=== PATIENT | male | born 1990 | race Caucasian/White ===

== ENCOUNTER 2016-08-27 21:21 | Emergency (ER) | payer OTHER ==
[2016-08-27] MEDS ORDERED: FLUORESCEIN OPHTH 1 MG STRIP As Ordered ONE (23:15)
[2016-08-27] MEDS ORDERED: TETRACAINE 0.5% OPHTH SOLN 2 ML As Ordered ONE (23:15)
[2016-08-27] MEDS ORDERED: IRRIGATION OPHTH SOLN (EYE WASH) 120ML As Ordered ONE (23:15)
[2016-08-27] MEDS ORDERED: OFLOXACIN 0.3 % (OCUFLOX) OPTH SOL 5ML OU ONE (23:45)
[2016-08-28] MEDS ORDERED: IBUPROFEN 800 MG TAB As Ordered ONE (00:11)
--- NOTE | 2016-08-28 00:19 | EDDOCDS ---
Physician Documentation [facility] Name: Trent Krueger Age: 26 yrs Sex: Male : 1990 Arrival Date: 08/27/2016 Time: 21:21 Bed I1 Private MD: Disposition: 08/27/16 23:40 Discharged to Home/Self Care. Impression: Injury of conjunctiva and corneal abrasion without foreign body, right eye. - Condition is Stable. - Discharge Instructions: Corneal Abrasion. - Prescriptions for ofloxacin 0.3 % Ophthalmic drops - instill 1 drop by OPHTHALMIC route 4 times per day for 7 days right; 1 bottle. - Medication Reconciliation, Local Pharmacy Hours form. - Follow up: Brian Patten; When: Call to arrange an appointment; Reason: Recheck today's complaints. Follow up: JOVI Pérez; When: As needed; Reason: Continuance of care. Follow up: Emergency Department; When: As needed; Reason: Worsening of conditions. - Problem is new. - Symptoms have improved. Historical: - Allergies: no known allergies; - Home Meds: 1. none - PMHx: none; - PSHx: left arm surgery; Lasik Surgery; - Social history: Smoking status: Patient states was never smoker of tobacco. No barriers to communication noted. - Family history: Not pertinent. - : The pt / caregiver states he / she is not on anticoagulants. Home medication list is obtained from the patient. - Exposure Risk Screening:: None identified. Vital Signs: 08/27 21:23 BP 153 / 101; Pulse 66; Resp 18; Temp 97.8(O); Pulse Ox 98% on R/A; Weight 97.52 kg / kb5 214.99 lbs (R); Height 5 ft. 11 in. (180.34 cm); Pain 7/10; 08/28 00:15 BP 148 / 92; Pulse 54; Resp 16; Temp 98.5; Pulse Ox 100% ; Pain 7/10; [facility] 08/27 21:23 Body Mass Index 29.99 (97.52 kg, 180.34 cm) kb5 Visual Acuity: 08/27 22:57 Left Eye Visual acuity 20/20, Pupil size 3 mm, ; Right Eye Visual acuity 20/25, Pupil cz size 3 mm, ; Both Eyes Visual acuity 20/20; Without Lenses; MDM: 23:22 Tetracaine (PF) Drops 0.5 % 2 drps Ophthalmic once ordered. ar2 23:22 Fluorescein Strip 1 strips Ophthalmic once ordered. ar2 23:22 Misc. Nursing Order ordered. ar2 23:39 Ofloxacin Drops 0.3 % 1 drps Ophthalmic once ordered. ar2 23:49 Financial registration complete. hs2 08/28 00:10 Ibuprofen 800 mg PO once ordered. ar2 Administered Medications: 08/27 23:23 Drug: Tetracaine (PF) 2 drps [tetracaine HCl (PF) 0.5 % eye drops (2 drps)] {Note: ld5 given to provider.} Route: Ophthalmic; Site: right eye; 23:23 Drug: Fluorescein 1 strips [fluorescein 1 mg eye strips (1 strips)] {Note: given to ld5 provider.} Route: Ophthalmic; Site: right eye; 08/28 00:14 Drug: Ofloxacin Drops 0.3 % 1 drps Route: Ophthalmic; Site: right eye; [facility] 00:14 Drug: Ibuprofen 800 mg Route: PO; [facility] 00:17 Follow up: Response: Pt left department before re-evaluation is appropriate [facility] Signatures: Barber Gamboa PA-C PA-C ar2 Inna Lowry RN RN [facility] Ary Cedillo, Brandon [facility] hs2 Audra Barry RN ld5 MTDD
--- NOTE | 2016-08-28 00:19 | EDDOCDS ---
Nurse's Notes [facility] Name: Trent Krueger Age: 26 yrs Sex: Male : 1990 Arrival Date: 08/27/2016 Time: 21:21 Bed I10 / 23 Private MD: Diagnosis: Injury of conjunctiva and corneal abrasion without foreign body, right eye Presentation: 08/27 21:37 Presenting complaint: Patient states: I got a piece of wood in my eye when cutting a [facility] board between four and five, tried eye drops and flushing in sink and shower. Mechanism of Injury: Penetrating trauma. The patient denies any loss of vision. Adult Sepsis Screening: The patient does not have new or worsening altered mentation. Patient's respiratory rate is less than 22. Systolic blood pressure is greater than 100. Patient has a qSOFA score of 0- Negative Sepsis Screen. Suicide/Homicide risk assessment- the patient denies having any suicidal and/or homicidal ideations and does not present with any other emotional, behavioral or mental health complaints. Status: The patient is an active duty clinical services professional. Transition of care: patient was not received from another setting of care. 21:37 Acuity: GAURAV Level 4 [facility] 21:37 Method Of Arrival: Walkin/Carried/Asstd [facility] Triage Assessment: 21:39 General: Appears in no apparent distress, uncomfortable, Behavior is cooperative. Pain: [facility] Location: right eye Pain currently is 7 out of 10 on a pain scale. HIV screening NA for this visit Offered previously. EENT: Reports pain in right eye. Respiratory: Airway is patent Respiratory effort is even, unlabored, Respiratory pattern is regular, symmetrical. Derm: Skin is pink, warm & dry. Historical: - Allergies: no known allergies; - Home Meds: 1. none - PMHx: none; - PSHx: left arm surgery; Lasik Surgery; - Social history: Smoking status: Patient states was never smoker of tobacco. No barriers to communication noted. - Family history: Not pertinent. - : The pt / caregiver states he / she is not on anticoagulants. Home medication list is obtained from the patient. - Exposure Risk Screening:: None identified. Screenin/07 00:15 Screening information is obtained from the patient. Fall risk: No risks identified. [facility] Assistance ADL's: requires no assistance with activities of daily living. Abuse/DV Screen: The patient / caregiver reports he/she is: not in a situation that causes fear, pain or injury. Nutritional screening: No deficits noted. Advance Directives: There is no active DNR order. home support is adequate. Assessment: 00:15 General: Appears in no apparent distress, comfortable, Behavior is appropriate for age, [facility] cooperative. Pain: Location: right eye. Respiratory: Airway is patent Respiratory effort is even, unlabored, Respiratory pattern is regular, symmetrical. Derm: Skin is pink, warm & dry. Vital Signs: 08/27 21:23 BP 153 / 101; Pulse 66; Resp 18; Temp 97.8(O); Pulse Ox 98% on R/A; Weight 97.52 kg kb5 (R); Height 5 ft. 11 in. (180.34 cm); Pain 7/10; 08/28 00:15 BP 148 / 92; Pulse 54; Resp 16; Temp 98.5; Pulse Ox 100% ; Pain 7/10; [facility] 08/27 21:23 Body Mass Index 29.99 (97.52 kg, 180.34 cm) kb Visual Acuity: 08/27 22:57 Left Eye Visual acuity 20/20, Pupil size 3 mm, ; Right Eye Visual acuity 20/25, Pupil cz size 3 mm, ; Both Eyes Visual acuity 20/20; Without Lenses; ED Course: 21:23 Patient visited by Adalid Pyle PCA. kb5 21:23 Patient moved to Waiting kb5 21:25 Patient visited by Adalid Pyle PCA. kb5 21:[address] [facility] 21:44 Patient moved to Pre RCE cz 22:51 Patient moved to Triage 1 jb5 22:51 Patient moved to Pre RCE jb5 22:53 Patient visited by Paulette Sharma PCA. jb5 22:53 Patient moved to Triage 1 jb5 22:53 Patient moved to I10 23 jb5 23:10 Barber Gamboa PA-C is [facility]. ar2 23:10 Christian Jeffery DO is Attending Physician. ar2 23:10 Patient visited by Barber Gamboa PA-C. ar2 23:23 Patient visited by Melisa Scott LPN. cp1 23:39 Brian Patten is Referral Physician. ar2 23:39 JOVI Pérez is Referral Physician. ar2 08/28 00:15 The patient / caregiver is instructed regarding the plan of care and ED course. [facility] 00:15 No IV's were initiated during this patient's visit. No procedures done that require [facility] assistance. Administered Medications: 08/27 23:23 Drug: Tetracaine (PF) 2 drps [tetracaine HCl (PF) 0.5 % eye drops (2 drps)] {Note: ld5 given to provider.} Route: Ophthalmic; Site: right eye; 23:23 Drug: Fluorescein 1 strips [fluorescein 1 mg eye strips (1 strips)] {Note: given to ld5 provider.} Route: Ophthalmic; Site: right eye; 08/28 00:14 Drug: Ofloxacin Drops 0.3 % 1 drps Route: Ophthalmic; Site: right eye; [facility] 00:14 Drug: Ibuprofen 800 mg Route: PO; [facility] 00:17 Follow up: Response: Pt left department before re-evaluation is appropriate [facility] Order Results: There are currently no results for this order. Outcome: 08/27 23:40 Discharge ordered by Provider. ar2 08/28 00:15 Discharge Assessment: Patient awake, alert and oriented x 3. No cognitive and/or [facility] functional deficits noted. Patient verbalized understanding of disposition instructions. patient administered narcotics - no. The following High Risk Discharge criteria are identified: None. Discharged to home ambulatory, with family. Condition: good Condition: stable Condition: improved. Discharge instructions given to patient, Instructed on discharge instructions, follow up and referral plans. medication usage, Demonstrated understanding of instructions, medications, Pt was receptive of discharge instructions/ teaching. Prescriptions given X 1. No special radiology studies were completed. Property :Personal belongings accompany Pt. 00:18 [address] the ED[address] [facility] Signatures: Stuart Rivera, RN RN Paulette Crum, SCUBA DIVE TRAINING INSTRUCTOR SCUBA DIVE TRAINING INSTRUCTOR jb5 Adalid Pyle, SCUBA DIVE TRAINING INSTRUCTOR SCUBA DIVE TRAINING INSTRUCTOR kb5 Barber Gamboa PA-C PA-C ar2 Melisa Scott LPN MANAGER RECRUITING cp1 Audra Barry RN RN ld5 Inna Lowry RN RN [facility] MTDD
--- NOTE | 2016-08-31 10:15 | EDDOCDS ---
Nurse's Notes [facility] Name: Trent Krueger Age: 26 yrs Sex: Male : 1990 Arrival Date: 08/27/2016 Time: 21:21 Bed I10 / 23 Private MD: Diagnosis: Injury of conjunctiva and corneal abrasion without foreign body, right eye Presentation: 08/27 21:37 Presenting complaint: Patient states: I got a piece of wood in my eye when cutting a [facility] board between four and five, tried eye drops and flushing in sink and shower. Mechanism of Injury: Penetrating trauma. The patient denies any loss of vision. Adult Sepsis Screening: The patient does not have new or worsening altered mentation. Patient's respiratory rate is less than 22. Systolic blood pressure is greater than 100. Patient has a qSOFA score of 0- Negative Sepsis Screen. Suicide/Homicide risk assessment- the patient denies having any suicidal and/or homicidal ideations and does not present with any other emotional, behavioral or mental health complaints. Status: The patient is an active duty cargo services coordinator. Transition of care: patient was not received from another setting of care. 21:37 Acuity: GAURAV Level 4 [facility] 21:37 Method Of Arrival: Walkin/Carried/Asstd [facility] Triage Assessment: 21:39 General: Appears in no apparent distress, uncomfortable, Behavior is cooperative. Pain: [facility] Location: right eye Pain currently is 7 out of 10 on a pain scale. HIV screening NA for this visit Offered previously. EENT: Reports pain in right eye. Respiratory: Airway is patent Respiratory effort is even, unlabored, Respiratory pattern is regular, symmetrical. Derm: Skin is pink, warm & dry. Historical: - Allergies: no known allergies; - Home Meds: 1. none - PMHx: none; - PSHx: left arm surgery; Lasik Surgery; - Social history: Smoking status: Patient states was never smoker of tobacco. No barriers to communication noted. - Family history: Not pertinent. - : The pt / caregiver states he / she is not on anticoagulants. Home medication list is obtained from the patient. - Exposure Risk Screening:: None identified. Screenin/07 00:15 Screening information is obtained from the patient. Fall risk: No risks identified. [facility] Assistance ADL's: requires no assistance with activities of daily living. Abuse/DV Screen: The patient / caregiver reports he/she is: not in a situation that causes fear, pain or injury. Nutritional screening: No deficits noted. Advance Directives: There is no active DNR order. home support is adequate. Assessment: 00:15 General: Appears in no apparent distress, comfortable, Behavior is appropriate for age, [facility] cooperative. Pain: Location: right eye. Respiratory: Airway is patent Respiratory effort is even, unlabored, Respiratory pattern is regular, symmetrical. Derm: Skin is pink, warm & dry. Vital Signs: 08/27 21:23 BP 153 / 101; Pulse 66; Resp 18; Temp 97.8(O); Pulse Ox 98% on R/A; Weight 97.52 kg kb5 (R); Height 5 ft. 11 in. (180.34 cm); Pain 7/10; 08/28 00:15 BP 148 / 92; Pulse 54; Resp 16; Temp 98.5; Pulse Ox 100% ; Pain 7/10; [facility] 08/27 21:23 Body Mass Index 29.99 (97.52 kg, 180.34 cm) kb Visual Acuity: 08/27 22:57 Left Eye Visual acuity 20/20, Pupil size 3 mm, ; Right Eye Visual acuity 20/25, Pupil cz size 3 mm, ; Both Eyes Visual acuity 20/20; Without Lenses; ED Course: 21:23 Patient visited by Adalid Pyle PCA. kb5 21:23 Patient moved to Waiting kb5 21:25 Patient visited by Adalid Pyle PCA. kb5 21:38 Triage Initiated [facility] 21:44 Patient moved to Pre RCE cz 22:51 Patient moved to Triage 1 jb5 22:51 Patient moved to Pre RCE jb5 22:53 Patient visited by Paulette Sharma PCA. jb5 22:53 Patient moved to Triage 1 jb5 22:53 Patient moved to I10 23 jb5 23:10 Barber Gamboa PA-C [facility] ar2 23:10 Christian Jeffery DO is Attending Physician. ar2 23:10 Patient visited by Barber Gamboa PA-C. ar2 23:23 Patient visited by Melisa Scott LPN. cp1 23:39 Brian Patten is Referral Physician. ar2 23:39 JOVI Pérez is Referral Physician. ar2 08/28 00:15 The patient / caregiver is instructed regarding the plan of care and ED course. [facility] 00:15 No IV's were initiated during this patient's visit. No procedures done that require [facility] assistance. 00:47 Patient name changed from Trent\S\\S\Evans\S\ to Trent\S\Art\S\Evans. EDMS 00:49 [facility] [place] [place] Payment Agreement was scanned into [employer] and attached to record. hs2 08:12 T-Sheet-- Draft Copy was scanned into [employer] and attached to record. se 18:56 [facility] [place] [place] Payment Agreement was scanned into [employer] and attached to record. [email or web address] Administered Medications: 08/27 23:23 Drug: Tetracaine (PF) 2 drps [tetracaine HCl (PF) 0.5 % eye drops (2 drps)] {Note: ld5 given to provider.} Route: Ophthalmic; Site: right eye; 23:23 Drug: Fluorescein 1 strips [fluorescein 1 mg eye strips (1 strips)] {Note: given to ld5 provider.} Route: Ophthalmic; Site: right eye; 08/28 00:14 Drug: Ofloxacin Drops 0.3 % 1 drps Route: Ophthalmic; Site: right eye; [facility] 00:14 Drug: Ibuprofen 800 mg Route: PO; [facility] 00:17 Follow up: Response: Pt left department before re-evaluation is appropriate [facility] Order Results: There are currently no results for this order. Outcome: 08/27 23:40 Discharge ordered by Provider. ar2 08/28 00:15 Discharge Assessment: Patient awake, alert and oriented x 3. No cognitive and/or [facility] functional deficits noted. Patient verbalized understanding of disposition instructions. patient administered narcotics - no. The following High Risk Discharge criteria are identified: None. Discharged to home ambulatory, with family. Condition: good Condition: stable Condition: improved. Discharge instructions given to patient, Instructed on discharge instructions, follow up and referral plans. medication usage, Demonstrated understanding of instructions, medications, Pt was receptive of discharge instructions/ teaching. Prescriptions given X 1. No special radiology studies were completed. Property :Personal belongings accompany Pt. 00:18 Patient left the ED. [facility] Signatures: Dispatcher [employer] Stuart Gleason, RN RN Paulette Crum, AGRICULTURAL ECONOMICS TEACHER AGRICULTURAL ECONOMICS TEACHER jb5 Adalid Pyle, AGRICULTURAL ECONOMICS TEACHER AGRICULTURAL ECONOMICS TEACHER kb5 Barber Gamboa, PAAngi PA-C ar2 Melisa Scott,HEAT AND VENT AIRCRAFT MECHANIC HEAT AND VENT AIRCRAFT MECHANIC cp1 Audra Barry,RN RN ld5 Inna Lowry,RN RN [facility] Tarsha Garcia, Reg Reg ks16 Ary Cedillo, Reg Reg hs2 Leni Rivera Chart Complete MTDD
--- NOTE | 2016-08-31 10:15 | EDDOCDS ---
Physician Documentation [facility] Name: Trent Krueger Age: 26 yrs Sex: Male : 1990 Arrival Date: 08/27/2016 Time: 21:21 Bed I1 Private MD: Disposition: 08/27/16 23:40 Discharged to Home/Self Care. Impression: Injury of conjunctiva and corneal abrasion without foreign body, right eye. - Condition is Stable. - Discharge Instructions: Corneal Abrasion. - Prescriptions for ofloxacin 0.3 % Ophthalmic drops - instill 1 drop by OPHTHALMIC route 4 times per day for 7 days right; 1 bottle. - Medication Reconciliation, Local Pharmacy Hours form. - Follow up: Brian Patten; When: Call to arrange an appointment; Reason: Recheck today's complaints. Follow up: JOVI Pérez; When: As needed; Reason: Continuance of care. Follow up: Emergency Department; When: As needed; Reason: Worsening of conditions. - Problem is new. - Symptoms have improved. Historical: - Allergies: no known allergies; - Home Meds: 1. none - PMHx: none; - PSHx: left arm surgery; Lasik Surgery; - Social history: Smoking status: Patient states was never smoker of tobacco. No barriers to communication noted. - Family history: Not pertinent. - : The pt / caregiver states he / she is not on anticoagulants. Home medication list is obtained from the patient. - Exposure Risk Screening:: None identified. Vital Signs: 08/27 21:23 BP 153 / 101; Pulse 66; Resp 18; Temp 97.8(O); Pulse Ox 98% on R/A; Weight 97.52 kg / kb5 214.99 lbs (R); Height 5 ft. 11 in. (180.34 cm); Pain 7/10; 08/28 00:15 BP 148 / 92; Pulse 54; Resp 16; Temp 98.5; Pulse Ox 100% ; Pain 7/10; [facility] 08/27 21:23 Body Mass Index 29.99 (97.52 kg, 180.34 cm) kb5 Visual Acuity: 08/27 22:57 Left Eye Visual acuity 20/20, Pupil size 3 mm, ; Right Eye Visual acuity 20/25, Pupil cz size 3 mm, ; Both Eyes Visual acuity 20/20; Without Lenses; MDM: 23:22 Tetracaine (PF) Drops 0.5 % 2 drps Ophthalmic once ordered. ar2 23:22 Fluorescein Strip 1 strips Ophthalmic once ordered. ar2 23:22 Misc. Nursing Order ordered. ar2 23:39 Ofloxacin Drops 0.3 % 1 drps Ophthalmic once ordered. ar2 23:49 Financial registration complete. hs2 08/28 00:10 Ibuprofen 800 mg PO once ordered. ar2 00:49 [place] Payment Agreement was scanned into [employer] and attached to record. hs2 08:12 T-Sheet-- Draft Copy was scanned into [employer] and attached to record. [facility] 18:56 [place] Payment Agreement was scanned into [employer] and attached to record. [email or web address] Administered Medications: 08/27 23:23 Drug: Tetracaine (PF) 2 drps [tetracaine HCl (PF) 0.5 % eye drops (2 drps)] {Note: ld5 given to provider.} Route: Ophthalmic; Site: right eye; 23:23 Drug: Fluorescein 1 strips [fluorescein 1 mg eye strips (1 strips)] {Note: given to ld5 provider.} Route: Ophthalmic; Site: right eye; 08/28 00:14 Drug: Ofloxacin Drops 0.3 % 1 drps Route: Ophthalmic; Site: right eye; [facility] 00:14 Drug: Ibuprofen 800 mg Route: PO; [facility] 00:17 Follow up: Response: Pt left department before re-evaluation is appropriate [facility] Signatures: Barber Gamboa PA-C PAAngi ar2 Inna Lowry RN RN [facility] Tarsha Garcia, Reg Reg ks16 Ary Cedillo, Reg Reg hs2 Leni Rivera Laura RN ld5 The chart was reviewed and I authenticate all verbal orders and agree with the evaluation and treatment provided.Attachments: 00:49 [facility] Payment Agreement hs2 08:12 T-Sheet-- Draft Copy [facility] 18:56 [facility] Payment Agreement [email or web address] Chart Complete MTDD
--- NOTE | 2016-08-31 10:15 | EDDOCDS ---
Physician Documentation [facility] Name: Trent Krueger Age: 26 yrs Sex: Male : 1990 Arrival Date: 08/27/2016 Time: 21:21 Bed I1 Private MD: Disposition: 08/27/16 23:40 Discharged to Home/Self Care. Impression: Injury of conjunctiva and corneal abrasion without foreign body, right eye. - Condition is Stable. - Discharge Instructions: Corneal Abrasion. - Prescriptions for ofloxacin 0.3 % Ophthalmic drops - instill 1 drop by OPHTHALMIC route 4 times per day for 7 days right; 1 bottle. - Medication Reconciliation, Local Pharmacy Hours form. - Follow up: Brian Patten; When: Call to arrange an appointment; Reason: Recheck today's complaints. Follow up: JOVI Pérez; When: As needed; Reason: Continuance of care. Follow up: Emergency Department; When: As needed; Reason: Worsening of conditions. - Problem is new. - Symptoms have improved. Historical: - Allergies: no known allergies; - Home Meds: 1. none - PMHx: none; - PSHx: left arm surgery; Lasik Surgery; - Social history: Smoking status: Patient states was never smoker of tobacco. No barriers to communication noted. - Family history: Not pertinent. - : The pt / caregiver states he / she is not on anticoagulants. Home medication list is obtained from the patient. - Exposure Risk Screening:: None identified. Vital Signs: 08/27 21:23 BP 153 / 101; Pulse 66; Resp 18; Temp 97.8(O); Pulse Ox 98% on R/A; Weight 97.52 kg / kb5 214.99 lbs (R); Height 5 ft. 11 in. (180.34 cm); Pain 7/10; 08/28 00:15 BP 148 / 92; Pulse 54; Resp 16; Temp 98.5; Pulse Ox 100% ; Pain 7/10; [facility] 08/27 21:23 Body Mass Index 29.99 (97.52 kg, 180.34 cm) kb5 Visual Acuity: 08/27 22:57 Left Eye Visual acuity 20/20, Pupil size 3 mm, ; Right Eye Visual acuity 20/25, Pupil cz size 3 mm, ; Both Eyes Visual acuity 20/20; Without Lenses; MDM: 23:22 Tetracaine (PF) Drops 0.5 % 2 drps Ophthalmic once ordered. ar2 23:22 Fluorescein Strip 1 strips Ophthalmic once ordered. ar2 23:22 Misc. Nursing Order ordered. ar2 23:39 Ofloxacin Drops 0.3 % 1 drps Ophthalmic once ordered. ar2 23:49 Financial registration complete. hs2 08/28 00:10 Ibuprofen 800 mg PO once ordered. ar2 00:49 [place] Payment Agreement was scanned into [employer] and attached to record. hs2 08:12 T-Sheet-- Draft Copy was scanned into [employer] and attached to record. [facility] 18:56 [place] Payment Agreement was scanned into [employer] and attached to record. [email or web address] Administered Medications: 08/27 23:23 Drug: Tetracaine (PF) 2 drps [tetracaine HCl (PF) 0.5 % eye drops (2 drps)] {Note: ld5 given to provider.} Route: Ophthalmic; Site: right eye; 23:23 Drug: Fluorescein 1 strips [fluorescein 1 mg eye strips (1 strips)] {Note: given to ld5 provider.} Route: Ophthalmic; Site: right eye; 08/28 00:14 Drug: Ofloxacin Drops 0.3 % 1 drps Route: Ophthalmic; Site: right eye; [facility] 00:14 Drug: Ibuprofen 800 mg Route: PO; [facility] 00:17 Follow up: Response: Pt left department before re-evaluation is appropriate [facility] Signatures: Barber Gamboa PA-C PAAngi ar2 Inna Lowry RN RN [facility] Tarsha Garcia, Reg Reg ks16 Ary Cedillo, Reg Reg hs2 Leni Rivera Laura RN ld5 The chart was reviewed and I authenticate all verbal orders and agree with the evaluation and treatment provided.Attachments: 00:49 [facility] [place] Payment Agreement hs2 08:12 T-Sheet-- Draft Copy [facility] 18:56 [facility] [place] Payment Agreement [email or web address] Chart Complete MTDD
== END 2016-08-28 00:18 | disposition home or self-care (01) ==
LOC: M ED 21:21
DX: S05.01XA Injury of conjunctiva and corneal abrasion without foreign body, right eye, initial encounter (principal); W20.8XXA Other cause of strike by thrown, projected or falling object, initial encounter; Y92.019 Unspecified place in single-family (private) house as the place of occurrence of the external cause; Y93.89 Activity, other specified; Y99.9 Unspecified external cause status